=== PATIENT | female | born 1975 | race American Indian/Alaskan Native ===

== ENCOUNTER 2021-06-21 12:21 | Outpatient (CLI) | payer OTHER | END 2021-06-21 12:40 | disposition home or self-care (01) | LOC: NST 12:21 | PROVIDERS: ATTEND Obstetrics & Gynecology Maternal & Fetal Medicine | DX: Z34.82 Encounter for supervision of other normal pregnancy, second trimester (principal) ==

== ENCOUNTER 2021-07-17 11:55 | Outpatient (CLI) | payer OTHER | END 2021-07-17 12:43 | disposition home or self-care (01) | LOC: NST 11:55 | PROVIDERS: ATTEND Obstetrics & Gynecology Maternal & Fetal Medicine | DX: Z34.83 Encounter for supervision of other normal pregnancy, third trimester (principal) ==

== ENCOUNTER → 2021-08-01 | Outpatient (CLI) | payer OTHER | END | disposition home or self-care (01) | LOC: NST 14:57 | PROVIDERS: ATTEND Obstetrics & Gynecology Maternal & Fetal Medicine | DX: Z34.83 Encounter for supervision of other normal pregnancy, third trimester (principal) ==

== ENCOUNTER → 2021-08-07 | Outpatient (CLI) | payer OTHER | END | disposition home or self-care (01) | LOC: NST 13:58 | PROVIDERS: ATTEND Obstetrics & Gynecology Maternal & Fetal Medicine | DX: Z34.83 Encounter for supervision of other normal pregnancy, third trimester (principal) ==

== ENCOUNTER 2021-08-15 14:51 | Outpatient (CLI) | payer OTHER | END 2021-08-15 15:30 | disposition home or self-care (01) | LOC: NST 14:51 | PROVIDERS: ATTEND Obstetrics & Gynecology | DX: Z34.83 Encounter for supervision of other normal pregnancy, third trimester (principal) ==

== ENCOUNTER 2021-08-17 15:08 | Inpatient (IN) | payer OTHER ==
[~2021-08-17] VITALS: Ht 160 cm; Wt 1.4 kg
[2021-08-17] MEDS ORDERED: PRENATAL TABLE1 EAC1 PO (16:31)
[2021-08-17] MEDS ORDERED: LABETALOL HCL100 MG PO (16:32)
[2021-08-17] MEDS ORDERED: SINGULAIR10 MG PO (16:33)
[2021-08-17] MEDS ORDERED: SYNTHROID50 MCG PO (16:33)
[2021-08-24] MEDS ORDERED: OXYC1TAB9 PO (08:13)
[2021-08-24] MEDS ORDERED: KETO10TA2 PO (08:13)
[2021-08-24] MEDS ORDERED: LABETALOL HCL200 MG PO (08:13)
== END 2021-08-24 11:29 | disposition home or self-care (01) | DRG 787 ==
LOC: LDR 15:08 → OB/GYN 15:08 → SURG-SUITE 08-21 22:03
PROVIDERS: ADMIT Obstetrics & Gynecology; ATTEND Obstetrics & Gynecology
PROC: BY4GZZZ Ultrasonography of Third Trimester, Multiple Gestation (ICD-10-PCS; 2021-08-20)
PROC: 4A1HXFZ Monitoring of Products of Conception, Cardiac Rhythm, External Approach (ICD-10-PCS; 2021-08-21)
PROC: 10D00Z1 Extraction of Products of Conception, Low, Open Approach (ICD-10-PCS; principal; 2021-08-21 20:00)
DX: O36.5931 Maternal care for other known or suspected poor fetal growth, third trimester, fetus 1 (principal); O10.02 Pre-existing essential hypertension complicating childbirth; O76 Abnormality in fetal heart rate and rhythm complicating labor and delivery; O36.5932 Maternal care for other known or suspected poor fetal growth, third trimester, fetus 2; O30.043 Twin pregnancy, dichorionic/diamniotic, third trimester; O28.3 Abnormal ultrasonic finding on antenatal screening of mother; O99.284 Endocrine, nutritional and metabolic diseases complicating childbirth; E03.9 Hypothyroidism, unspecified; O24.429 Gestational diabetes mellitus in childbirth, unspecified control; Z3A.34 34 weeks gestation of pregnancy; Z37.2 Twins, both liveborn

== ENCOUNTER 2021-08-26 00:01 | Emergency (ER) | payer OTHER ==
[~2021-08-26] VITALS: Ht 157.5 cm; Wt 113.4 kg
[~2021-08-26 00:01] MED LIST: KETO10TA2 PO; LABETALOL HCL100 MG PO; LABETALOL HCL200 MG PO; OXYC1TAB9 PO; PRENATAL TABLE1 EAC1 PO; SINGULAIR10 MG PO; SYNTHROID50 MCG PO
[2021-08-26] MEDS ORDERED: LABETALOL HCL200 MG PO (04:06)
== END 2021-08-26 04:11 | disposition home or self-care (01) ==
LOC: ER 00:01
DX: R00.2 Palpitations (principal); R51.9 Headache, unspecified; I10 Essential (primary) hypertension; J45.998 Other asthma

== ENCOUNTER 2021-10-04 09:00 | Outpatient (CLI) | payer OTHER | END 2021-10-04 09:15 | disposition home or self-care (01) | LOC: PPH VACUNA 09:00 | PROVIDERS: ATTEND Emergency Medicine Pediatric Emergency Medicine | DX: Z23 Encounter for immunization (principal) ==